=== PATIENT | male | born 1995 | race American Indian/Alaskan Native ===

== ENCOUNTER 2021-11-15 04:37 | Emergency (ER) | payer SELFPAY ==
--- NOTE | 2021-11-15 05:09 | Event Note ---
ED Screening Note Date of service: 11/15/21 Time: 05:08 ED Screening Note: 26-year-old male presenting with a chief complaint of right flank pain intermittently times several days. Positive nausea This initial assessment/diagnostic orders/clinical plan/treatment(s) is/are subject to change based on patients health status, clinical progression and re- assessment by fellow clinical providers in the ED. Further treatment and workup at subsequent clinical providers discretion. Patient/guardian urged not to elope from the ED as their condition may be serious if not clinically assessed and managed. Initial orders include: CBC, CMP, UA CT abdomen pelvis Dilaudid 1 mg IV, Zofran 8 mg IV
[2021-11-15] MEDS ORDERED: KETOROLAC 30 MG/1 ML INJ ONE (05:14)
[2021-11-15] MEDS ORDERED: HYDROmorphone 1 MG/1 ML INJ ONE (05:14)
[2021-11-15] MEDS ORDERED: ONDANSETRON 4 MG/2 ML INJ ONE (05:14)
[2021-11-15] MEDS: KETOROLAC 30 MG/1 ML INJ IV ONE ×2 (05:41→06:51)
[2021-11-15] MEDS ORDERED: ONDANSETRON 4 MG/2 ML INJ IV ONE (05:46)
[2021-11-15] MEDS ORDERED: HYDROmorphone 1 MG/1 ML INJ IV ONE (05:46)
--- NOTE | 2021-11-15 05:51 | Cat Scan Report ---
CT ABDOMEN AND PELVIS WITHOUT CONTRAST INDICATION / CLINICAL INFORMATION: Right flank pain. TECHNIQUE: Axial CT images were obtained through the abdomen and pelvis without IV contrast. All CT scans at this location are performed using CT dose reduction for ALARA by means of automated exposure control. COMPARISON: None available. FINDINGS: LOWER CHEST: No significant abnormality. AORTA / ARTERIES: No significant abnormality. IVC / VEINS: No significant abnormality. LYMPH NODES: No significant adenopathy. COLON: No significant abnormality. APPENDIX: No significant abnormality. STOMACH / SMALL BOWEL: No significant abnormality. PERITONEUM: No free fluid. No free air. No fluid collection. LIVER: No significant abnormality. GALLBLADDER: No significant abnormality. BILE DUCTS: No significant abnormality. PANCREAS: No significant abnormality. SPLEEN: No significant abnormality. ADRENALS: No significant abnormality. RIGHT KIDNEY / URETER: There is a 0.4 cm stone at the distal ureterovesicular junction causing mild h ydroureter and mild hydronephrosis. LEFT KIDNEY / URETER: No significant abnormality. URINARY BLADDER: No significant abnormality. REPRODUCTIVE ORGANS: No significant abnormality. SKELETAL SYSTEM: No significant abnormality. ADDITIONAL FINDINGS: None. IMPRESSION: 1. There is a 0.4 cm stone at the right distal ureterovesicular junction causing mild hydroureter and hydronephrosis. Signer Name: Dallas Gomez DO Signed: 11/15/2021 5:47 AM Workstation Name: [id number]
[2021-11-15 05:59] LABS: Bilirubin,Urine NEG (Negative); Blood,Urine MOD (Negative); Color,Urine Yellow (Yellow); Protein,Urine <15 mg/dL mg/dL (Negative)
[2021-11-15 06:01] LABS: Basophils % (Auto) 0.7 % (0.0-1.8); Eosinophils # (Auto) 0.1 K/mm3 (0.0-0.4); Eosinophils % (Auto) 1.8 % (0.0-4.3); Hematocrit 43.8 % (35.5-45.6); Hemoglobin 13.7 gm/dl (11.8-15.2); Lymphocytes # (Auto) 1.1 K/mm3 (1.2-5.4); Lymphocytes % (Auto) 18.6 % (13.4-35.0); Mean Corpuscular HGB Conc 31 % (32-34); Mean Corpuscular Volume 86 fl (84-94); Monocytes # (Auto) 0.6 K/mm3 (0.0-0.8); Monocytes % (Auto) 10.1 % (0.0-7.3); Platelet Count 242 K/mm3 (140-440); Red Blood Count 5.08 M/mm3 (3.65-5.03); Red Cell Distribution Width 12.3 % (13.2-15.2)
[2021-11-15] MEDS ORDERED: SODIUM CHLORIDE 0.9% 1000 ML 1,000 ML IV ONE (06:08)
[2021-11-15 06:15] LABS: Alanine Aminotransferase 17 units/L (7-56); Albumin 4.2 g/dL (3.9-5); BUN/Creatinine Ratio 13; Blood Urea Nitrogen 14 mg/dL (9-20); Calcium 9.1 mg/dL (8.4-10.2); Hemolysis Index 3
[2021-11-15] MEDS ORDERED: MORPHINE 4 MG/1 ML INJ IV ONE (06:48)
--- NOTE | 2021-11-15 06:57 | Emergency Department Report ---
ED Abdominal Pain HPI - General Chief Complaint: Abdominal Pain Stated Complaint: R FLANK PAIN Time Seen by Provider: 11/15/21 06:07 Source: patient, EMS Mode of arrival: Stretcher Limitations: No Limitations - History of Present Illness Initial Comments: Patient is 26 years old male with no significant past medical history. Patient presented to the ER complaining of right flank pain for the last few days. Patient described the pain as sharp, intermittent associated with nausea but no vomiting. Patient denied any fever or chills. Patient stated that he did not have any similar symptoms like this before. MD Complaint: abdominal pain -: days(s) Location: R flank Radiation: none Migration to: no migration Severity scale (0 -10): 10 Consistency: constant - Related Data Allergies Allergy/AdvReac Type Severity Reaction Status Date / Time No Known Allergies Allergy Unverified 11/15/21 05:12 ED Review of Systems ROS: Stated complaint: R FLANK PAIN Other details as noted in HPI Comment: All other systems reviewed and negative Constitutional: denies: chills, fever Respiratory: denies: cough, shortness of breath, SOB with exertion Cardiovascular: denies: chest pain, palpitations Gastrointestinal: abdominal pain, nausea. denies: vomiting, diarrhea, con stipation, hematemesis, melena, hematochezia Musculoskeletal: denies: back pain ED Past Medical Hx - Past Medical History Previous Medical History?: No - Surgical History Past Surgical History?: No - Social History Smoking Status: Current Every Day Smoker Substance Use Type: None ED Physical Exam - General Limitations: No Limitations General appearance: alert, in distress - Head Head exam: Present: atraumatic, normocephalic, normal inspection - Eye Eye exam: Present: normal appearance - ENT ENT exam: Present: mucous membranes dry - Neck Neck exam: Present: normal inspection, full ROM. Absent: tenderness, meningismus - Respiratory Respiratory exam: Present: normal lung sounds bilaterally - Cardiovascular Cardiovascular Exam: Present: regular rate, normal rhythm, normal heart sounds - GI/Abdominal GI/Abdominal exam: Present: soft, normal bowel sounds. Absent: distended, tenderness, guarding, rebound, rigid, organomegaly, mass, bruit, pulsatile mass, hernia - Extremities Exam Extremities exam: Present: normal inspection, normal capillary refill. Absent: tenderness, calf tenderness - Back Exam Back exam: Present: normal inspection, full ROM, CVA tenderness (R). Absent: CVA tenderness (L) - Neurological Exam Neurological exam: Present: alert, oriented X3, CN II-XII intact, normal gait, reflexes normal. Absent: motor sensory deficit - Psychiatric Psychiatric exam: Present: normal mood - Skin Skin exam: Present: warm, intact, normal color ED Course Vital Signs 11/15/21 05:02 Temperature 98.5 F Pulse Rate 81 Respiratory 16 Rate Blood Pressure 128/78 [Left] ED Medical Decision Making - Lab Data Result diagrams: 11/15/21 05:25 11/15/21 05:25 - Radiology Data Radiology results: report reviewed - Medical Decision Making Patient is 26 years old male with no significant past medical history. Patient presented to the ER complaining of right flank pain for the last few days. Patient described the pain as sharp, intermittent associated with nausea but no vomiting. Patient denied any fever or chills. Patient stated that he did not have any similar symptoms like this before. Patient received Dilaudid, Toradol and morphine and Zofran. Patient stated that he is feeling better. Labs reviewed and is unremarkable. CT abdomen and pelvis showed a 0.4 cm ureteric stone with mild hydronephrosis and hydroureter. Patient advised to follow-up with a urologist in the next 2 to 3 days and given prescription for Percocet, Zofran and Flomax. Patient advised to return to the ER if he develop any new symptoms. Critical care attestation.: If time is entered above; I have spent that time in minutes in the direct care of this critically ill patient, excluding procedure time. ED Disposition Clinical Impression: Kidney stone on right side, Ureteric colic Disposition: HOME / SELF CARE / HOMELESS Is pt being admited?: No Condition: Stable Instructions: Kidney Stones, [id number], Renal Colic, [id number] Referrals: EBER HOLGUIN MD [Staff Physician] - 3-5 Days
[2021-11-15 08:42] VITALS: BP 136/78
== END 2021-11-15 08:25 | disposition home or self-care (01) ==
LOC: ED 04:37
DX: N20.0 Calculus of kidney (principal); N23 Unspecified renal colic; F17.200 Nicotine dependence, unspecified, uncomplicated
CPT/HCPCS: 36415; 74176; 80053; 81001; 85025; 96374; 96375; 99284; J1170; J1885; J2270; J2405; J7030; Q0162

== ENCOUNTER 2021-11-15 11:47 | Emergency (ER) | payer SELFPAY ==
[2021-11-15 11:57] VITALS: BP 135/90
[2021-11-15] MEDS ORDERED: ONDANSETRON 4 MG ODT TAB PO ONE (12:35)
[2021-11-15] MEDS ORDERED: ACETAMINOPHEN 325 MG TAB PO ONE (12:35)
[2021-11-15] MEDS ORDERED: HYDROmorphone 1 MG/1 ML INJ IM ONE (12:35)
[2021-11-15] MEDS ORDERED: KETOROLAC 10 MG TAB PO ONE (12:35)
--- NOTE | 2021-11-15 12:41 | Emergency Department Report ---
ED General Adult HPI - General Chief complaint: Pain General Stated complaint: KIDNEY STONE Time Seen by Provider: 11/15/21 12:25 Source: patient, RN notes reviewed, old records reviewed Mode of arrival: Ambulatory Limitations: No Limitations - History of Present Illness Initial comments: The patient was evaluated in the emergency department for symptoms described in the history of present illness. He/she was evaluated in the context of the global COVID-19 pandemic, which necessitated consideration that the patient might be at risk for infection with the virus that causes COVID-19. Institutional protocols and algorithms that pertain to the evaluation of patients at risk for COVID-19 are in a state of rapid change based on information released by regulatory bodies including the CDC and federal and state organizations. These policies and algorithms were followed during the patient's care in the emergency department. Please note that these policies, procedures and recommendations changed on a rapid basis. The patient is a pleasant 26-year-old gentleman. He is not known to myself previously. He was seen in this department earlier on this morning, and diagnosed with right-sided renal colic, with a 0.4 cm stone at the right-sided UVJ location, had laboratory studies which were essentially unremarkable, and discharged with appropriate outpatient medication. The patient presents to the ER today with recurrent right flank pain and right lower quadrant pain, without vomiting, fever, chills, or testicular pain, reporting that he is not able to get any of his prescriptions filled. He reports that secondary to the current holiday, none of the pharmacies are open. The patient has not attempted vomq-uia-nznrzbj medication, such as Tylenol, or ibuprofen or Naprosyn. He reports that he is accompanied by a friend/family member, and reports that they are able to drive him home. -: Gradual, hour(s) Location: back, abdomen Severity scale (0 -10): 10 Quality: aching Consistency: intermittent Improves with: none Worsens with: none - Related Data Previous Rx's Medication Instructions Recorded Last Taken Type Ondansetron [Zofran Odt] 4 mg PO Q8HR PRN #14 tab.rapdis 11/15/21 Unknown Rx Tamsulosin [Flomax] 0.4 mg PO QDAY #14 cap 11/15/21 Unknown Rx oxyCODONE /ACETAMINOPHEN [Percocet 1 tab PO Q6HR PRN #14 tablet 11/15/21 Unknown Rx 5/325] Allergies Allergy/AdvReac Type Severity Reaction Status Date / Time No Known Allergies Allergy Verified 11/15/21 11:53 ED Review of Systems ROS: Stated complaint: KIDNEY STONE Other details as noted in HPI Constitutional: denies: fever Cardiovascular: denies: chest pain Gastrointestinal: abdominal pain. denies: vomiting Genitourinary: denies: dysuria, testicular pain Musculoskeletal: back pain Psychiatric: anxiety ED Past Medical Hx - Past Medical History Previous Medical History?: No - Surgical History Past Surgical History?: No - Social History Smoking Status: Current Every Day Smoker Substance Use Type: None - Medications Home Medications: Home Medications Medication Instructions Recorded Confirmed Last Taken Type Ondansetron [Zofran Odt] 4 mg PO Q8HR PRN #14 tab.rapdis 11/15/21 Unknown Rx Tamsulosin [Flomax] 0.4 mg PO QDAY #14 cap 11/15/21 Unknown Rx oxyCODONE /ACETAMINOPHEN [Percocet 1 tab PO Q6HR PRN #14 tablet 11/15/21 Unknown Rx 5/325] ED Physical Exam - General Limitations: No Limitations General appearance: alert, in no apparent distress - Head Head exam: Present: atraumatic, normocephalic - Eye Eye exam: Present: normal appearance, EOMI. Absent: nystagmus - ENT ENT exam: Present: normal exam, normal orophraynx, mucous membranes moist, normal external ear exam - Neck Neck exam: Present: normal inspection, full ROM. Absent: tenderness, meningismus - Respiratory Respiratory exam: Present: normal lung sounds bilaterally. Absent: respiratory distress, wheezes, rales, rhonchi, stridor, decreased breath sounds - Cardiovascular Cardiovascular Exam: Present: regular rate, normal rhythm, normal heart sounds. Absent: bradycardia, tachycardia, irregular rhythm, systolic murmur, diastolic murmur, rubs, gallop - GI/Abdominal GI/Abdominal exam: Present: soft. Absent: distended, tenderness, guarding, rebound, rigid, pulsatile mass - Rectal Rectal exam: Present: deferred - Extremities Exam Extremities exam: Present: normal inspection, full ROM, other (2+ pulses noted in the bilateral upper and lower extremities. There is no palpable cord. negative Homans sign. Muscular compartments are soft. The pelvis is stable.). Absent: pedal edema, calf tenderness - Back Exam Back exam: Present: normal inspection, full ROM, CVA tenderness (R). Absent: tenderness, paraspinal tenderness, vertebral tenderness - Neurological Exam Neurological exam: Present: alert, oriented X3, normal gait, other (No facial droop. Tongue midline. Extraocular movements intact bilaterally. Facial sensation intact to light touch in V1, V2, V3 distribution bilaterally. 5 and a 5 strength in 4 extremities. Sensation intact to light touch in 4 extremities.). Absent: motor sensory deficit - Psychiatric Psychiatric exam: Present: anxious - Skin Skin exam: Present: warm, dry, intact, normal color. Absent: rash ED Course Vital Signs 11/15/21 11:56 Temperature 98 F Pulse Rate 61 Respiratory 20 Rate Blood Pressure 135/90 [Right] O2 Sat by Pulse 100 Oximetry - Reevaluation(s) Reevaluation #1: 11/15/21 12:39 Differential diagnosis, including but not limited to: Renal colic, encounter for medical screening examination Assessment and plan: 26-year-old gentleman, who is afebrile, with reassuring vital signs, presenting with persistent pain from renal colic. On my assessment, he appears minimally uncomfortable, and has right-sided CVA tenderness. He is not actively vomiting, laboratory studies and CT scan from earlier on today are reviewed and appreciated. Secondary to the current [place] holiday, and all outpatient pharmacies being closed, the patient is not able to get his outpatient prescriptions filled. I escalated and discussed this with our private household worker, who in turn discussed it with our chief pharmacist, Mr. Washington He advises that since they are not an outpatient pharmacy, they are not able to dispense a one-time prescription supply for this patient. However, this patient does not meet criteria for admission or hospitalization. I am compassionate to his particular situation, and we will therefore medicated with a one-time dose of hydromorphone, in addition to oral medications. The patient did state that he is not taking meua-ixh-hbkhqwj medications. It is acceptable to take Tylenol every 4-6 hours, ibuprofen or Naprosyn as scheduled, and follow-up immediately tomorrow with an outpatient pharmacy to have his prescriptions filled. The patient may also purchase xyoa-wum-lbsdvtq valeria tablets to assist with nausea, should he develop nausea or vomiting. I explicitly extensively discussed this with the patient. He articulated understanding. ED Medical Decision Making - Lab Data Vital Signs 11/15/21 11:56 Temperature 98 F Pulse Rate 61 Respiratory 20 Rate Blood Pressure 135/90 [Right] O2 Sat by Pulse 100 Oximetry - Radiology Data Radiology results: pending, report reviewed, image reviewed CT ABDOMEN AND PELVIS WITHOUT CONTRAST INDICATION / CLINICAL INFORMATION: Right flank pain. TECHNIQUE: Axial CT images were obtained through the abdomen and pelvis without IV contrast. All CT scans at this location are performed using CT dose reduction for ALARA by means of automated exposure control. COMPARISON: None available. FINDINGS: LOWER CHEST: No significant abnormality. AORTA / ARTERIES: No significant abnormality. IVC / VEINS: No significant abnormality. LYMPH NODES: No significant adenopathy. COLON: No significant abnormality. APPENDIX: No significant abnormality. STOMACH / SMALL BOWEL: No significant abnormality. PERITONEUM: No free fluid. No free air. No fluid collection. LIVER: No significant abnormality. GALLBLADDER: No significant abnormality. BILE DUCTS: No significant abnormality. PANCREAS: No significant abnormality. SPLEEN: No significant abnormality. ADRENALS: No significant abnormality. RIGHT KIDNEY / URETER: There is a 0.4 cm stone at the distal ureterovesicular junction causing mild hydroureter and mild hydronephrosis. LEFT KIDNEY / URETER: No significant abnormality. URINARY BLADDER: No significant abnormality. REPRODUCTIVE ORGANS: No significant abnormality. SKELETAL SYSTEM: No significant abnormality. ADDITIONAL FINDINGS: None. IMPRESSION: 1. There is a 0.4 cm stone at the right distal ureterovesicular junction causing mild hydroureter and hydronephrosis. Signer Name: Dallas Gomez DO Signed: 11/15/2021 4:47 AM Workstation Name: [id number] Critical care attestation.: If time is entered above; I have spent that time in minutes in the direct care of this critically ill patient, excluding procedure time. ED Disposition Clinical Impression: Renal colic on right side Disposition: HOME / SELF CARE / HOMELESS Is pt being admited?: No Does the pt Need Aspirin: No Condition: Stable Additional Instructions: Unfortunately, all the pharmacies are closed today secondary to the [place] oliday. In addition, because the hospital pharmacy is not considered an outpatient pharmacy, patient is not able to receive a 1 day prescription supply from this pharmacy. We recommend that the patient advance diet as tolerated, and take ctyf-zyd-lkaatcl pain medication. Recommend that patient take Tylenol/acetaminophen, 975 mg by mouth, every 4-6 hours as needed for physical pain, maximum daily dose of Tylenol to not exceed 3 g per 24 h. There are 1000 mg in 1 g. Recommend that patient take ibuprofen 600 mg by mouth, every 6 hours with food, as needed for physical pain. Alternatively, the patient may take dqke-pss-osomccv Naprosyn, 500 mg by mouth, every 12 hours with food, as needed for physical pain. The patient should not take ibuprofen and Naprosyn together, or in combination. The patient should choose 1 or the other, as is his preference. We do recommend that the patient follow-up with the urology group within the next 5 to 7 days. [facility] is a local outpatient urology practice, and they also have a kidney stone hotline that the patient may call to obtain expedited outpatient follow-up. Patient may call the following phone number to obtain expedited follow-up with [facility]. [phone] 14/06 appointment scheduling is available to anyone experiencing symptoms of a kidney stone. In general, the patient should consume 6 cups of water per day, and avoid consumption of salt, heavy and spicy foods. Please return to the emergency room right away with new pain, worsened pain, migration of pain, projectile vomiting, change in mental status, confusion, inability tolerate liquid feeds, new, worsened or different symptoms not present on the initial emergency room evaluation Patient may purchase ordb-jfx-biasgeh valeria tablets and take 1 tablet every 6 hours as needed for nausea and vomiting. Referrals: [facility] [Provider Group] - 3-5 Days
== END 2021-11-15 13:05 | disposition home or self-care (01) ==
LOC: ED 11:47
DX: N23 Unspecified renal colic (principal)
CPT/HCPCS: 96372; 99282; J1170; J3490; Q0162